=== PATIENT | male | born 1985 | race Two or more races ===

== ENCOUNTER 2017-11-03 03:59 | Emergency (ER) | payer MEDICAID, SELFPAY ==
[~2017-11-03] VITALS: Ht 170.2 cm; Wt 80.0 kg
[2017-11-03] MEDS ORDERED: ONDANSETRON 2MG/ML, 2ML IVPush ONE (05:30)
[2017-11-03] MEDS ORDERED: MORPHINE SULFATE 4 MG/ML, 1ML IVPush PRN (05:30)
[2017-11-03] MEDS ORDERED: SODIUM CHLORIDE 0.9% 1,000ML IVBOLUS ONE (05:30)
[2017-11-03] MEDS ORDERED: SODIUM CHLORIDE FLUSH 10ML SYR IVF ONE (05:30)
[2017-11-03 05:38] LABS: BASOPHILS # (AUTO) 0.03 x10^3/uL (0-0.1); BASOPHILS % (AUTO) 0 % (0-1); EOSINOPHILS # (AUTO) 0.03 x10^3/uL (0-0.4); EOSINOPHILS % (AUTO) 0 % (1-7); LYMPHOCYTES # (AUTO) 1.77 x10^3/uL (1-3.4); LYMPHOCYTES % (AUTO) 15 % (22-44); MD NO; MEAN CORPUSCULAR HEMOGLOBIN 29.6 pg (27.5-34.5); MEAN CORPUSCULAR HGB CONC 34.4 g/dL (33.2-36.2); MEAN CORPUSCULAR VOLUME 86.2 fL (81-97); MEAN PLATELET VOLUME 7.8 fL (7.4-10.4); MONOCYTES % (AUTO) 9 % (2-9); NEUTROPHILS # (AUTO) 8.93 x10^3/uL (1.8-6.8); NEUTROPHILS % (AUTO) 75 % (42-75); PLATELET COUNT 296 x10^3/uL (130-400); RED BLOOD COUNT 5.21 x10^6/uL (4.38-5.82); RED CELL DISTRIBUTION WIDTH 14.3 % (9.4-14.8)
[2017-11-03 05:50] LABS: CHLORIDE 105 mmol/L (98-107)
[2017-11-03] MEDS ORDERED: MORPHINE SULFATE 4 MG/ML, 1ML ONE (05:53)
[2017-11-03] MEDS ORDERED: ONDANSETRON 2MG/ML, 2ML ONE (05:53)
[2017-11-03 05:58] LABS: ALANINE AMINOTRANSFERASE 113 U/L (12-78); ALBUMIN 4.2 g/dL (3.4-5.0); ALKALINE PHOSPHATASE 96 U/L (45-117); ANION GAP 10 mmol/L (5-15); BILIRUBIN,TOTAL 1.2 mg/dL (0.2-1.0); CALCIUM 9.5 mg/dL (8.5-10.1); CREATININE 0.74 mg/dL (0.7-1.3); TOTAL PROTEIN 8.2 g/dL (6.4-8.2)
[2017-11-03] MEDS ORDERED: OMNIPAQUE 350 MG/ML, 100ML BOTTLE ONE (08:21)
[2017-11-03 09:44] VITALS: BP 147/83
[2017-11-03] MEDS ORDERED: MAALOX/HYOSCYAMINE/LIDOCAINE 45 ML BTL ONE (09:48)
[2017-11-03] MEDS ORDERED: OXYcodone/APAP 5/325MG TABLET ONE (09:48)
[2017-11-03] MEDS ORDERED: OXYcodone/APAP 5/325MG TABLET PO ONE (10:00)
[2017-11-03] MEDS ORDERED: MAALOX/HYOSCYAMINE/LIDOCAINE 45 ML BTL PO ONE (10:00)
== END 2017-11-03 09:54 | disposition home or self-care (01) ==
LOC: ED 09:08
DX: R10.13 Epigastric pain (principal); R10.12 Left upper quadrant pain
CPT/HCPCS: 36415; 74022; 74177; 76700; 80053; 83690; 85025; 93005; 96361; 96374; 96375; 99285; J2405; J7030; Q9967

== ENCOUNTER 2018-07-25 20:33 | Emergency (ER) | payer MEDICAID, OTHER ==
[~2018-07-25] VITALS: Ht 167.6 cm; Wt 79.5 kg
[2018-07-25 20:33] VITALS: BP 114/81
== END 2018-07-25 21:23 | disposition home or self-care (01) ==
LOC: ED 21:03
DX: F10.229 Alcohol dependence with intoxication, unspecified (principal); F17.210 Nicotine dependence, cigarettes, uncomplicated; Z86.19 Personal history of other infectious and parasitic diseases; Y90.9 Presence of alcohol in blood, level not specified
CPT/HCPCS: 99283